=== PATIENT | male | born 1955 | race Caucasian/White ===

== ENCOUNTER → 2016-08-26 | Outpatient (CLI) | payer OTHER | END | disposition short-term general hospital (02) | LOC: CLUROL 07-29 02:49 → CLPULM 10:51 | DX: G47.30 Sleep apnea, unspecified (principal); J30.9 Allergic rhinitis, unspecified; H40.9 Unspecified glaucoma; G47.00 Insomnia, unspecified; E03.9 Hypothyroidism, unspecified; K58.9 Irritable bowel syndrome, unspecified; M54.5 Low back pain; E66.9 Obesity, unspecified; Z85.46 Personal history of malignant neoplasm of prostate ==